=== PATIENT | female | born 1965 | race Caucasian/White ===

== ENCOUNTER 2019-03-06 13:09 | Day surgery (SDC) | payer BC ==
[2019-03-06] MEDS ORDERED: LIDOCAINE 2% MDV (20MG/ML) 20ML VIAL IV ONE (13:10)
[2019-03-06] MEDS ORDERED: PROPOFOL 10 MG/ML VIAL IV ONE (13:10)
--- NOTE | 2019-03-07 12:20 | Operative Note ---
OPERATION: Screening COLONOSCOPY. PREOPERATIVE DIAGNOSIS: Average risk initial exam. POSTOPERATIVE DIAGNOSIS: Normal colonoscopy. ESTIMATED BLOOD LOSS: None. SPECIMENS: None. PREPARATION QUALITY: Good to excellent. COMPLICATIONS: None apparent. PROCEDURE: After informed consent was obtained from the patient, she was placed in the left lateral decubitus position in the endoscopy suite, sedated and monitored by the department of anesthesia. Digital rectal examination was unremarkable. A well-lubricated [id number] colonoscope was inserted into the rectum and advanced to the cecum. Preparation quality was good to excellent. The cecum, cecal bulb, ileocecal valve, and appendiceal orifice appeared unremarkable. The ascending colon was unremarkable. The endoscope was then reinserted back into the cecum for a second inspection and it was unremarkable again. The endoscope was then retracted through the ascending colon, transverse colon, descending colon, sigmoid colon, and rectum. No polyps, mass lesions, inflammation, or diverticula were seen. Forward and J-turn views of the rectum and anorectum were unremarkable. The endoscope was then straightened, the rectal ampulla deflated, and the endoscope was removed. RECOMMENDATIONS: The patient should resume her medications and diet. I would recommend a repeat colonoscopy in 10 years based on her average risk and negative exam. As always, thank you for allowing me to participate in the healthcare of your patients. CC: MD PADMINI Phelps
== END 2019-03-06 15:18 | disposition home or self-care (01) ==
LOC: HOP 13:09
PROVIDERS: ATTEND Internal Medicine Gastroenterology
DX: Z12.11 Encounter for screening for malignant neoplasm of colon (principal); K21.9 Gastro-esophageal reflux disease without esophagitis
CPT/HCPCS: 00812; G0121

== ENCOUNTER 2019-08-21 11:59 | Day surgery (SDC) | payer BC ==
[2019-08-21] MEDS ORDERED: PROPOFOL 10 MG/ML VIAL IV ONE (12:00)
[2019-08-21] MEDS ORDERED: FENTANYL PF 100MCG/2ML VIAL IV ONE (12:00)
[2019-08-21] MEDS ORDERED: LIDOCAINE 2% MDV (20MG/ML) 20ML VIAL IV ONE (12:00)
--- NOTE | 2019-08-21 14:20 | Operative Note ---
OPERATION: ESOPHAGOGASTRODUODENOSCOPY. PREOPERATIVE DIAGNOSIS: Epigastric pain, nausea, vomiting. POSTOPERATIVE DIAGNOSES: 1. 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 2. Retained food in stomach. PROCEDURE: After informed consent was obtained from the patient, she was placed in the left lateral decubitus position in the endoscopy suite, sedated and monitored by the department of anesthesia. A well-lubricated [id number] gastroscope was placed in the posterior oropharynx under direct visualization and passed to the proximal esophagus. The endoscope was advanced through the proximal, mid, and distal esophagus, which were unremarkable. The gastric lumen did demonstrate some retained food and debris. The endoscope was promptly advanced through the pylorus into the duodenal bulb. At the apex of the duodenal bulb junction with the sweep, there was noted to be an ulcerated stricture. I did not attempt navigating through the stricture due to the retained food and concern over the friability of the stricture and potential for causing trauma to the area. The endoscope was retracted into the gastric lumen. The stomach was deflated. The endoscope was removed. No food regurgitated into the esophagus. RECOMMENDATIONS: I would suggest the patient be on a high-dose PPI such as pantoprazole 40 mg b.i.d. I will repeat her upper endoscopy in 8 weeks. As always, thank you for allowing me to participate in the healthcare of your patients. PADMINI
== END 2019-08-21 13:00 | disposition home or self-care (01) ==
LOC: HOP 11:59
PROVIDERS: ATTEND Internal Medicine Gastroenterology
DX: R10.13 Epigastric pain (principal); R11.2 Nausea with vomiting, unspecified; K31.5 Obstruction of duodenum; K26.9 Duodenal ulcer, unspecified as acute or chronic, without hemorrhage or perforation; K21.9 Gastro-esophageal reflux disease without esophagitis; J45.909 Unspecified asthma, uncomplicated

== ENCOUNTER 2019-10-23 08:51 | Day surgery (SDC) | payer BC ==
[2019-10-23] MEDS ORDERED: LIDOCAINE 2% MDV (20MG/ML) 20ML VIAL IV ONE (08:52)
[2019-10-23] MEDS ORDERED: PROPOFOL 10 MG/ML VIAL IV ONE (08:52)
[2019-10-23] MEDS ORDERED: FENTANYL PF 100MCG/2ML VIAL IV ONE (08:52)
--- NOTE | 2019-10-24 10:00 | Operative Note ---
OPERATION: ESOPHAGOGASTRODUODENOSCOPY with biopsy. PREOPERATIVE DIAGNOSIS: Duodenal ulcer followup. POSTOPERATIVE DIAGNOSES: 1. 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 2. Otherwise normal exam. PROCEDURE: After informed consent was obtained from the patient, she was placed in the left lateral decubitus position in the endoscopy suite, sedated and monitored by the department of anesthesia. A well-lubricated [id number] gastroscope was placed in the posterior oropharynx under direct visualization and passed to the proximal, mid, and distal esophagus. The GE junction and esophagus were unremarkable. The gastric body, antrum, pylorus, and duodenal bulb were unremarkable. At the apex of the duodenal bulb junction with the sweep, there was a high-grade stricture which did not allow passage of the endoscope. It was difficult to visualize the lumen of the stricture but it appeared there might be some inflammatory changes that are persisting. I did try to obtain biopsies of the area. No excessive bleeding was noted. The endoscope was removed and retracted into the gastric body where a J-turn view was performed to inspect the fundus and proximal stomach, which were unremarkable. The endoscope was then straightened, stomach deflated, and the endoscope was removed. RECOMMENDATIONS: I believe the patient should undergo an upper GI x-ray to further evaluate the anatomy. In the meantime, we will refer her to Dr. Holland for a surgical opinion as to whether she would benefit from perhaps a gastrojejunostomy. As always, thank you for allowing me to participate in the healthcare of your patients. PADMINI
== END 2019-10-23 10:20 | disposition home or self-care (01) ==
LOC: HOP 08:51
PROVIDERS: ATTEND Internal Medicine Gastroenterology
DX: K26.7 Chronic duodenal ulcer without hemorrhage or perforation (principal); J45.909 Unspecified asthma, uncomplicated; F17.210 Nicotine dependence, cigarettes, uncomplicated
CPT/HCPCS: 43239; 00731; J3010